=== PATIENT | male | born 1980 | race African-American/Black ===

== ENCOUNTER 2022-01-02 05:16 | Emergency (ER) | payer BC, OTHER ==
[~2022-01-02] VITALS: Ht 172.7 cm; Wt 93.2 kg
[2022-01-02 05:17] VITALS: BP 128/82
[2022-01-02] MEDS ORDERED: LIDOCAINE 1% MDV 20ML VIAL SC ONE (06:20)
[2022-01-02] MEDS ORDERED: NEOSPORIN OINT 0.9 GM PKT TOP ONE (06:20)
[2022-01-02] MEDS ORDERED: BOOSTRIX/ADACEL VACCINE (DIPHTH/PERTUSS/ACELL/TETANUS) 0.5ML SYR IM ONE (06:20)
== END 2022-01-02 07:24 | disposition home or self-care (01) ==
LOC: M ED 05:16
DX: S61.212A Laceration without foreign body of right middle finger without damage to nail, initial encounter (principal); S61.214A Laceration without foreign body of right ring finger without damage to nail, initial encounter; W26.8XXA Contact with other sharp object(s), not elsewhere classified, initial encounter; Y92.89 Other specified places as the place of occurrence of the external cause; Y93.9 Activity, unspecified; Y99.0 Civilian activity done for income or pay

== ENCOUNTER 2022-01-12 10:46 | Emergency (ER) | payer OTHER ==
[~2022-01-12] VITALS: Ht 172.7 cm; Wt 92.4 kg
[2022-01-12 10:47] VITALS: BP 143/94
== END 2022-01-12 12:07 | disposition home or self-care (01) ==
LOC: M ED 10:46
DX: Z48.02 Encounter for removal of sutures (principal)